=== PATIENT | male | born 1970 | race Caucasian/White ===

== ENCOUNTER 2019-05-21 20:00 | Emergency (ER) | payer MEDICAID ==
[~2019-05-21] VITALS: Ht 167.6 cm; Wt 69.1 kg
[2019-05-21 20:13] VITALS: Ht 167.6 cm; Wt 69.1 kg
[2019-05-21] MEDS ORDERED: ADDERALL 30 MG30 MG PO (20:14)
[2019-05-21] MEDS ORDERED: TEGRETOL 100 M100 MG PO (20:14)
[2019-05-21] MEDS ORDERED: DIFLUCAN100 MG PO (21:00)
[2019-05-21] MEDS ORDERED: CLEOCIN HCL300 MG PO (21:00)
[2019-05-21] MEDS ORDERED: CLOTRIM ANTIFUN15 GM TOPICAL (21:03)
[2019-05-21 21:11] VITALS: BP 132/89
== END 2019-05-21 21:15 | disposition home or self-care (01) ==
LOC: D.ER 20:00
DX: B37.9 Candidiasis, unspecified (principal); L03.311 Cellulitis of abdominal wall; F17.200 Nicotine dependence, unspecified, uncomplicated